=== PATIENT | female | born 2000 | race Caucasian/White ===

== ENCOUNTER 2020-08-21 19:52 | Inpatient (IN) ==
[2020-08-21] MEDS ORDERED: Metoclopramide 10 MG/2 ML VIAL IVP PRN (20:05)
[2020-08-21] MEDS ORDERED: *HR* Nalbuphine 10 MG/ML AMPUL IV PRN (20:05)
[2020-08-21] MEDS ORDERED: Famotidine 20 MG/2 ML VIAL IVP PRN (20:05)
[2020-08-21] MEDS ORDERED: Naloxone 0.4 MG/ML INJ IVP PRN (20:05)
[2020-08-21] MEDS ORDERED: Lidocaine 1% 20 ML MDV INFILT PRN (20:05)
[2020-08-21] MEDS ORDERED: miSOPROStoL 25 MCG TABLET VG PRN (20:05)
[2020-08-21] MEDS ORDERED: Ringers Solution, Lactated 1,000 ML IVC SCH (20:15)
[2020-08-21 21:28] LABS: Basophils % 0.3 %; Eosinophils # 0.1 K/mcL (0.0-0.6); Eosinophils % 1.3 %; Hematocrit 29.9 % (35.3-44.9); Hemoglobin 9.7 g/dL (11.5-15.4); Immature Granulocytes % 0.3 % (0-4); Lymphocytes % 16.1 %; Mean Corpuscular HGB Conc 32.4 g/dL (31.6-35.5); Mean Corpuscular Hemoglobin 26.2 pg (28.0-33.3); Mean Corpuscular Volume 80.8 fL (83.0-100.0); Mean Platelet Volume 11.7 fL (9.4-12.4); Monocytes # 0.5 K/mcL (0.0-1.3); Monocytes % 8.5 %; Neutrophils # 4.4 K/mcL (1.6-8.9); Platelet Count 220 K/mcL (140-400); Red Cell Distribution Width 12.9 % (11.5-14.5); Segmented Neutrophils % 73.5 %
[2020-08-21 21:37] LABS: Amphetamine Screen,Urine Negative ng/mL (Cutoff=1000); Barbiturate Screen,Urine Negative ng/mL (Cutoff=200); Benzodiazepines Screen,Urine Negative ng/mL (Cutoff=200); Cannabinoid Screen,Urine Negative ng/mL (Cutoff = 50); Cocaine Screen,Urine Negative ng/mL (Cutoff= 300); Opiate Screen,Urine Negative ng/mL (Cutoff=300); Phencyclidine Screen,Urine Negative ng/mL (Cutoff=25)
[2020-08-22] MEDS ORDERED: Ropivacaine/PF 0.2% 20 ML VIAL ONE (01:22)
[2020-08-22] MEDS ORDERED: *HR* FentaNYL (PF) 100 MCG/2 ML VIAL ONE (01:22)
[2020-08-22] MEDS ORDERED: EPHEDrine 50 MG/ML VIAL IVP PRN (01:25)
[2020-08-22] MEDS ORDERED: Ropivacaine/PF 0.2% 20 ML VIAL EP ONE (01:25)
[2020-08-22] MEDS ORDERED: *HR* FentaNYL (PF) 100 MCG/2 ML VIAL EP ONE (01:25)
[2020-08-22] MEDS ORDERED: Epidural Premix (fent/bupiv) 110 ML EP ONE (01:27)
[2020-08-22] MEDS ORDERED: Epidural Premix (fent/bupiv) 110 ML EP SCH (01:30)
[2020-08-22] MEDS ORDERED: *HR* HYDROcodone/Acet 5/325 mg TABLET PO PRN (13:29)
[2020-08-22] MEDS ORDERED: Acetaminophen 325 MG TABLET PO PRN (13:29)
[2020-08-22] MEDS ORDERED: Oxytocin 20 units/ LR 1000 mL 20 UNIT/1,000 ML BAG IVC SCH (13:29)
[2020-08-22] MEDS ORDERED: Lanolin 7 G OINT...G. TP PRN (13:29)
[2020-08-22] MEDS ORDERED: Benzocaine/Menthol 56 GM AEROSOL SPRAY TP PRN (13:29)
[2020-08-22] MEDS ORDERED: Measles/Mumps/Rubella Vacc 0.5 ML VIAL SQ PRN (13:29)
[2020-08-22] MEDS: Ibuprofen 600 MG TABLET PO PRN (20:19)
[2020-08-23 04:43] VITALS: BP 108/64
[2020-08-23] MEDS: Ibuprofen 600 MG TABLET PO PRN (08:28)
[2020-08-23] MEDS ORDERED: Prenatal Vit/FA 1 EACH TABLET PO SCH (09:00)
== END 2020-08-23 16:05 | disposition home or self-care (01) | DRG 560 ==
LOC: 1NENULAB 19:52 → 1NENUOBS 08-22 13:29
PROVIDERS: ADMIT Obstetrics & Gynecology; ATTEND Obstetrics & Gynecology

== ENCOUNTER 2021-07-30 02:50 | Inpatient (IN) ==
[~2021-07-30 02:50] MED LIST: *HR* Nalbuphine 10 MG/ML AMPUL IV PRN; Azithromycin 500 MG in 0.9 % Sodium Chloride 250 ML IVPB PRN; Famotidine 20 MG/2 ML VIAL IVP PRN; Metoclopramide 10 MG/2 ML VIAL IVP PRN; Naloxone 0.4 MG/ML INJ IVP PRN; Ondansetron 4 MG/2 ML VIAL IVP PRN; Ringers Solution, Lactated 1,000 ML IVC SCH
[2021-07-30 03:04] LABS: Basophils % 0.2 %; Eosinophils # 0.1 K/mcL (0.0-0.6); Eosinophils % 0.8 %; Hematocrit 31.4 % (35.3-44.9); Hemoglobin 10.1 g/dL (11.5-15.4); Immature Granulocytes % 0.3 % (0-4); Lymphocytes # 1.2 K/mcL (0.6-4.6); Lymphocytes % 12.1 %; Mean Corpuscular HGB Conc 32.2 g/dL (31.6-35.5); Mean Corpuscular Hemoglobin 25.1 pg (28.0-33.3); Mean Corpuscular Volume 78.1 fL (83.0-100.0); Mean Platelet Volume 11.3 fL (9.4-12.4); Monocytes # 0.8 K/mcL (0.0-1.3); Monocytes % 8.7 %; Neutrophils # 7.4 K/mcL (1.6-8.9); Platelet Count 187 K/mcL (140-400); Red Blood Count 4.02 M/mcL (3.82-4.97); Red Cell Distribution Width 18.6 % (11.5-14.5); Segmented Neutrophils % 77.9 %; White Blood Count 9.5 K/mcL (4.3-11.1)
[2021-07-30] MEDS ORDERED: EPHEDrine 50 MG/ML VIAL IVP PRN (03:14)
[2021-07-30] MEDS ORDERED: Epidural Premix (fent/bupiv) 110 ML EP SCH (03:15)
[2021-07-30 03:51] LABS: Amphetamine Screen,Urine Negative ng/mL (Cutoff=1000); Barbiturate Screen,Urine Negative ng/mL (Cutoff=200); Benzodiazepines Screen,Urine Negative ng/mL (Cutoff=200); Cannabinoid Screen,Urine Negative ng/mL (Cutoff = 50); Cocaine Screen,Urine Negative ng/mL (Cutoff= 300); Opiate Screen,Urine Negative ng/mL (Cutoff=300); Phencyclidine Screen,Urine Negative ng/mL (Cutoff=25)
[2021-07-30] MEDS ORDERED: *HR* Ropivacaine/PF 0.5% 20 ML VIAL ONE (04:13)
[2021-07-30] MEDS ORDERED: Ropivacaine/PF 0.2% 20 ML VIAL ONE (04:13)
[2021-07-30 04:20] LABS: Influenza A PCR Negative (Negative); Influenza B PCR Negative (Negative); Resp. Syncytial Virus PCR Negative (Negative)
[2021-07-30 04:22] LABS: SARS-CoV-2 by PCR (In House) Negative (Negative)
[2021-07-30] MEDS ORDERED: Oxytocin 30 UNIT/503 ML BAG IVC ONE (06:44)
[2021-07-30] MEDS ORDERED: Oxytocin 30 UNIT/503 ML BAG IVC SCH (10:10)
[2021-07-30] MEDS ORDERED: Benzocaine/Menthol 56 GM AEROSOL SPRAY TP PRN (10:10)
[2021-07-30] MEDS ORDERED: Ondansetron ODT 4 MG TAB.RAPDIS SL PRN (10:10)
[2021-07-30] MEDS ORDERED: OXYTOCIN/RINGERS LACTATE 10 UNIT/166.6 ML BAG IVC ONE (10:10)
[2021-07-30] MEDS ORDERED: Lanolin 7 G OINT...G. TP PRN (10:10)
[2021-07-30] MEDS: Prenatal Vit/FA 1 EACH TABLET PO SCH (11:01)
[2021-07-30] MEDS: Acetaminophen 325 MG TABLET PO SCH ×3 (11:02→23:58)
[2021-07-30 16:05] VITALS: O2SAT 98
[2021-07-30] MEDS: Ibuprofen 600 MG TABLET PO SCH ×2 (17:26→23:58)
[2021-07-31 07:38] VITALS: BP 108/58; PULSE 60; TEMP 97.6
[2021-07-31] MEDS: Prenatal Vit/FA 1 EACH TABLET PO SCH (08:01)
[2021-07-31] MEDS: Acetaminophen 325 MG TABLET PO SCH (09:30)
[2021-07-31] MEDS: Ibuprofen 600 MG TABLET PO SCH (09:30)
== END 2021-07-31 14:00 | disposition home or self-care (01) | DRG 560 ==
LOC: 1NENULAB → 1NENUOBS 09:55
PROVIDERS: ADMIT Advanced Practice Midwife; ATTEND Advanced Practice Midwife